=== PATIENT | female | born 1990 | race Caucasian/White ===

== ENCOUNTER 2020-11-02 09:21 | Emergency (ER) | payer OTHER ==
[~2020-11-02] VITALS: Ht 157.5 cm; Wt 47.6 kg
[2020-11-02 09:28] VITALS: BP 109/72
--- NOTE | 2020-11-02 09:45 | NUR ---
Patient discharged in custody of [employer] and [employer] [place] in stable condition. Written and verbal after care instructions given. Patient and [employer] verbalizes understanding of instruction.
== END 2020-11-02 09:46 ==
LOC: ER 09:31
DX: Z02.89 Encounter for other administrative examinations (principal)